=== PATIENT | male | born 1965 | race Caucasian/White ===

== ENCOUNTER 2020-12-26 05:59 | Outpatient (REF) | payer OTHER, SELFPAY ==
--- NOTE | ~2020-12-26 | XR_ITS ---
EXAMINATION: XR FOOT, RIGHT CLINICAL INFORMATION: Right great toe pain. COMPARISON: None TECHNIQUE: AP, lateral, and oblique views of the right foot. FINDINGS: The 1st interphalangeal joint is held in flexion limiting evaluation. No acute fracture or dislocation of the right foot. No radiopaque foreign body. No destructive bony lesion is seen. There appears to be some irregularity of the base of 1st distal phalanx articular surface where there is a concave appearance but without definite loss of joint space. There appears to be subchondral cyst formation about the distal aspect of the 1st proximal phalanx with question of some deformity of the 1st middle phalanx head. XR/XR foot RT min 3V IMPRESSION: 1. Abnormality of the right 1st interphalangeal joint as described. 2. No acute fracture or dislocation evident.
[2020-12-26 07:05] LABS: MANUAL DIFF FLAG NO
[2020-12-26 07:15] LABS: Basophils Absolute Auto 0.1 X10*3/uL (0.0-0.2); Basophils Percent Auto 1.3 % (0-2); Eosinophils Absolute Auto 0.2 X10*3/uL (0.0-0.4); Eosinophils Percent Auto 4.3 % (0-4); Hematocrit 46.4 % (42-52); Imm Gran Abs Auto 0.02 X10*3/uL (0.00-0.03); Imm Gran Pct Auto 0.4 % (0.0-0.4); Lymphocytes Absolute Auto 1.9 X10*3/uL (1.2-4.9); Lymphocytes Percent Auto 35.5 % (20-40); Mean Corpuscular HGB Conc 34.5 g/dl (31.0-36.0); Mean Corpuscular Hemoglobin 31.7 pg (27.0-33.0); Mean Corpuscular Volume 91.9 fL (80-98); Mean Platelet Volume 10.5 fL (9.4-12.4); Monocytes Absolute Auto 0.7 X10*3/uL (0.1-1.2); Monocytes Percent Auto 12.5 % (2-11); Neutrophils Absolute Auto 2.4 X10*3/uL (2.0-8.3); Platelet Count 206 X10*3/uL (160-400); Red Blood Count 5.05 X10*6/uL (4.60-5.80); Red Cell Distribution Width 11.9 % (11.0-16.0); White Blood Count 5.3 X10*3/uL (4.8-10.8)
[2020-12-26 07:49] LABS: Alanine Aminotransferase 16 U/L (0-40); Alkaline Phosphatase 55 U/L (39-117); Anion Gap 9 (12-20); Aspartate Amino Transferase 17 U/L (5-37); Bilirubin Total 0.7 mg/dL (0.0-1.0); Blood Urea Nitrogen 10 mg/dL (9-16); Calcium 9.3 mg/dL (8.4-10.2); Carbon Dioxide 28 mmol/L (22-29); Chloride 107 mmol/L (96-108); Cholesterol 201 mg/dL; Estimated Glomerular Filt Rate > 60; Glucose Fasting 92 mg/dL (60-99); HDL Cholesterol 59 mg/dL; LDL Cholesterol Calculated 125 mg/dl; Potassium 4.3 mmol/L (3.3-5.1); Sodium 140 mmol/L (135-145); Total Protein 6.7 g/dL (6.5-8.0); Triglycerides 89 mg/dL
[2020-12-26 08:30] LABS: Prostate Specific Antigen 0.92 ng/mL (<0.05-4.0)
== END 2020-12-26 06:00 | disposition home or self-care (01) ==
LOC: HO.LAB 05:59
PROVIDERS: PCP Internal Medicine; Visit Provider Internal Medicine
DX: N40.0 Benign prostatic hyperplasia without lower urinary tract symptoms (principal); E78.00 Pure hypercholesterolemia, unspecified; R10.30 Lower abdominal pain, unspecified; Z86.010 Personal history of colon polyps
CPT/HCPCS: 36415; 73630; 80053; 80061; 84153; 85025

== ENCOUNTER 2021-05-30 11:21 | Outpatient (REF) | payer OTHER, SELFPAY ==
--- NOTE | ~2021-05-30 | XR_ITS ---
EXAMINATION: XR KNEE, LEFT CLINICAL INFORMATION: Left knee pain COMPARISON: None TECHNIQUE: Four views of the left knee. FINDINGS: Faint chondrocalcinosis. Generalized mild spurring preservation joint spaces. Small nonspecific joint effusion. Within the posterior and lateral aspect of the tibial diametaphysis, there is a broad-based exostosis most consistent with a sessile osteochondroma. Note definitive aggressive features seen on plain radiographs but due to its location, it is seen in a limited fashion. No other focal lesion. No chondroid matrix or soft tissue swelling or mass grossly. XR/XR knee LT 4V IMPRESSION: 1. Nonspecific joint effusion. 2. Broad-based sessile osteochondroma as above emanating from the posterior/lateral tibial metaphysis. Recommend MRI for further assessment. This could cause localized impingement which could be etiology of the patient's symptoms versus any aggressive changes not evident on radiographs.
== END 2021-05-30 11:22 | disposition home or self-care (01) ==
LOC: HO.XRAY 11:21
PROVIDERS: PCP Internal Medicine; Visit Provider Internal Medicine
DX: M25.562 Pain in left knee (principal)
CPT/HCPCS: 73564

== ENCOUNTER 2021-06-05 14:10 | Outpatient (REF) | payer OTHER, SELFPAY ==
[2021-06-05 15:01] LABS: Influenza A PCR NEGATIVE (Negative); Influenza B PCR NEGATIVE (Negative); Resp Syncy Virus RNA Qual PCR NEGATIVE (Negative); SARS COV2 PCR INHOUSE NEGATIVE (Negative)
== END 2021-06-05 14:11 | disposition home or self-care (01) ==
LOC: HO.LNP 14:10
PROVIDERS: Visit Provider Internal Medicine
DX: Z20.822 Contact with and (suspected) exposure to COVID-19 (principal)
CPT/HCPCS: 0241U

== ENCOUNTER 2021-09-03 16:58 | Outpatient (REF) | payer OTHER, SELFPAY ==
[2021-09-03 17:10] LABS: MANUAL DIFF FLAG NO
[2021-09-03 17:50] LABS: Basophils Absolute Auto 0.1 X10*3/uL (0.0-0.2); Basophils Percent Auto 0.9 % (0-2); Eosinophils Absolute Auto 0.1 X10*3/uL (0.0-0.4); Hematocrit 44.6 % (42.0-52.0); Hemoglobin 15.8 g/dl (14.0-18.0); Imm Gran Abs Auto 0.01 X10*3/uL (0.00-0.03); Imm Gran Pct Auto 0.1 % (0.0-0.4); Lymphocytes Absolute Auto 1.8 X10*3/uL (1.2-4.9); Lymphocytes Percent Auto 26.8 % (20-40); Mean Corpuscular HGB Conc 35.4 g/dl (31.0-36.0); Mean Corpuscular Hemoglobin 32.6 pg (27.0-33.0); Mean Platelet Volume 10.2 fL (9.4-12.4); Monocytes Absolute Auto 0.8 X10*3/uL (0.1-1.2); Monocytes Percent Auto 11.5 % (2-11); Neutrophils Percent Auto 58.7 % (45-73); Platelet Count 220 X10*3/uL (160-400); Red Blood Count 4.85 X10*6/uL (4.60-5.80); Red Cell Distribution Width 12.2 % (11.0-16.0); White Blood Count 6.9 X10*3/uL (4.8-10.8)
[2021-09-03 18:19] LABS: Alanine Aminotransferase 36 U/L (0-40); Albumin Level 4.1 g/dL (3.5-5.0); Alkaline Phosphatase 63 U/L (39-117); Anion Gap 9 (12-20); Aspartate Amino Transferase 22 U/L (5-37); Bilirubin Total 0.4 mg/dL (0.0-1.0); Blood Urea Nitrogen 17 mg/dL (9-16); C Reactive Protein 0.11 mg/dL (< or = 0.50); Calcium 9.6 mg/dL (8.4-10.2); Carbon Dioxide 29 mmol/L (22-29); Chloride 108 mmol/L (96-108); Estimated Glomerular Filt Rate > 60; Glucose Random 100 mg/dL (60-115); Potassium 4.7 mmol/L (3.3-5.1); Sodium 141 mmol/L (135-145); Total Protein 6.9 g/dL (6.5-8.0)
[2021-09-03 18:27] LABS: Erythrocyte Sedimentation Rate 4 MM/HR (0-15)
[2021-09-03 18:40] LABS: Thyroid Stimulating Hormone 0.94 uIU/mL (0.32-4.0)
== END 2021-09-03 16:59 | disposition home or self-care (01) ==
LOC: HO.LAB 16:58
PROVIDERS: PCP Internal Medicine; Visit Provider Internal Medicine
DX: R55 Syncope and collapse (principal)
CPT/HCPCS: 36415; 80053; 82550; 84443; 85025; 85652; 86140

== ENCOUNTER 2021-09-10 07:37 | Outpatient (REF) | payer OTHER, SELFPAY ==
--- NOTE | 2021-09-10 07:43 | EEG_ITS ---
This is a 16-channel EEG with an EKG lead. The patient is reported awake during the tracing. Background EEG rhythm is low amplitude fast with no obvious asymmetry or paroxysmal tendency. Photic stimulation does not produce any significant abnormality. Hyperventilation is not performed. Cardiac lead does not reveal any significant abnormality. IMPRESSION: Unremarkable EEG. MD SALVADOR Bolaños/CAYDEN / [id number]
== END 2021-09-10 07:38 | disposition home or self-care (01) ==
LOC: HO.NEURO 07:37
PROVIDERS: PCP Internal Medicine; Visit Provider Internal Medicine
DX: R55 Syncope and collapse (principal)
CPT/HCPCS: 95816

== ENCOUNTER 2022-07-06 07:07 | Outpatient (REF) | payer OTHER, SELFPAY ==
[2022-07-06 07:24] LABS: MANUAL DIFF FLAG NO
[2022-07-06 08:05] LABS: Basophils Absolute Auto 0.1 X10*3/uL (0.0-0.2); Basophils Percent Auto 1.3 % (0-2); Eosinophils Absolute Auto 0.2 X10*3/uL (0.0-0.4); Eosinophils Percent Auto 3.9 % (0-4); Hematocrit 43.9 % (42.0-52.0); Hemoglobin 15.6 g/dl (14.0-18.0); Imm Gran Abs Auto 0.02 X10*3/uL (0.00-0.03); Imm Gran Pct Auto 0.4 % (0.0-0.4); Lymphocytes Absolute Auto 1.7 X10*3/uL (1.2-4.9); Mean Corpuscular HGB Conc 35.5 g/dl (31.0-36.0); Mean Corpuscular Hemoglobin 31.6 pg (27.0-33.0); Monocytes Absolute Auto 0.8 X10*3/uL (0.1-1.2); Monocytes Percent Auto 14.4 % (2-11); Neutrophils Absolute Auto 2.6 x10*3/uL (2.0-8.3); Platelet Count 209 X10*3/uL (160-400); Red Blood Count 4.93 X10*6/uL (4.60-5.80); Red Cell Distribution Width 12.3 % (11.0-16.0); White Blood Count 5.4 X10*3/uL (4.8-10.8)
[2022-07-06 09:03] LABS: Alanine Aminotransferase 28 U/L (0-40); Albumin Level 3.8 g/dL (3.5-5.0); Alkaline Phosphatase 63 U/L (39-117); Anion Gap 11 (12-20); Aspartate Amino Transferase 21 U/L (5-37); Bilirubin Total 0.7 mg/dL (0.0-1.0); Blood Urea Nitrogen 11 mg/dL (9-16); Calcium 8.8 mg/dL (8.4-10.2); Carbon Dioxide 24 mmol/L (22-29); Chloride 108 mmol/L (96-108); Estimated Glomerular Filt Rate > 60; Glucose Random 93 mg/dL (60-115); Magnesium 1.9 mg/dL (1.6-2.6); Potassium 3.9 mmol/L (3.3-5.1); Sodium 139 mmol/L (135-145); Total Protein 6.4 g/dL (6.5-8.0)
[2022-07-06 09:20] LABS: Prostate Specific Antigen 0.79 ng/mL (<0.05-4.0)
== END 2022-07-06 07:08 | disposition home or self-care (01) ==
LOC: HO.LAB 07:07
PROVIDERS: PCP Internal Medicine; Visit Provider Internal Medicine
DX: Z00.00 Encounter for general adult medical examination without abnormal findings (principal); Z12.5 Encounter for screening for malignant neoplasm of prostate
CPT/HCPCS: 36415; 80053; 83735; 84153; 85025

== ENCOUNTER 2022-10-28 09:32 | Outpatient (REF) | payer OTHER, SELFPAY | END 2022-10-28 09:33 | disposition home or self-care (01) | LOC: HO.10HDLNP 09:32 | PROVIDERS: Visit Provider Internal Medicine | DX: Z20.818 Contact with and (suspected) exposure to other bacterial communicable diseases (principal) | CPT/HCPCS: 87070; 87205 ==

== ENCOUNTER 2023-08-06 06:48 | Outpatient (REF) | payer OTHER, SELFPAY ==
[2023-08-06 07:02] LABS: MANUAL DIFF FLAG NO
[2023-08-06 07:41] LABS: Basophils Absolute Auto 0.1 X10*3/uL (0.0-0.2); Basophils Percent Auto 1.2 % (0-2); Eosinophils Absolute Auto 0.2 X10*3/uL (0.0-0.4); Eosinophils Percent Auto 4.7 % (0-4); Hematocrit 44.1 % (42.0-52.0); Hemoglobin 15.4 g/dl (14.0-18.0); Imm Gran Abs Auto 0.02 X10*3/uL (0.00-0.03); Imm Gran Pct Auto 0.4 % (0.0-0.4); Lymphocytes Absolute Auto 1.8 X10*3/uL (1.2-4.9); Lymphocytes Percent Auto 35.8 % (20-40); Mean Corpuscular HGB Conc 34.9 g/dl (31.0-36.0); Mean Corpuscular Hemoglobin 31.4 pg (27.0-33.0); Mean Platelet Volume 9.7 fL (9.4-12.4); Monocytes Absolute Auto 0.6 X10*3/uL (0.1-1.2); Monocytes Percent Auto 12.6 % (2-11); Neutrophils Absolute Auto 2.3 x10*3/uL (2.0-8.3); Neutrophils Percent Auto 45.3 % (45-73); Platelet Count 222 X10*3/uL (160-400); Red Cell Distribution Width 12.4 % (11.0-16.0); White Blood Count 5.1 X10*3/uL (4.8-10.8)
[2023-08-06 07:59] LABS: Alanine Aminotransferase 31 U/L (0-40); Albumin Level 3.8 g/dL (3.5-5.0); Alkaline Phosphatase 63 U/L (39-117); Anion Gap 11 (12-20); Aspartate Amino Transferase 28 U/L (5-37); Bilirubin Total 0.5 mg/dL (0.0-1.0); Blood Urea Nitrogen 9 mg/dL (9-16); Calcium 9.1 mg/dL (8.4-10.2); Carbon Dioxide 25 mmol/L (22-29); Chloride 108 mmol/L (96-108); Cholesterol 224 mg/dL (<200); Estimated Glomerular Filt Rate > 60; Glucose Fasting 98 mg/dL (60-99); HDL Cholesterol 56 mg/dL (>40); LDL Cholesterol Calculated 149 mg/dL (<100); Sodium 140 mmol/L (135-145); Total Protein 6.8 g/dL (6.5-8.0); Triglycerides 96 mg/dL (<150)
[2023-08-06 08:47] LABS: Prostate Specific Antigen Scr 0.89 ng/mL (<0.05-4.0)
== END 2023-08-06 06:49 | disposition home or self-care (01) ==
LOC: HO.LAB 06:48
PROVIDERS: PCP Internal Medicine; Visit Provider Internal Medicine
DX: Z12.5 Encounter for screening for malignant neoplasm of prostate (principal); R35.1 Nocturia; M54.50 Low back pain, unspecified
CPT/HCPCS: 36415; 80053; 80061; 84153; 85025

== ENCOUNTER 2023-09-12 08:11 | Outpatient (REF) | payer OTHER, SELFPAY | END 2023-09-12 08:12 | disposition home or self-care (01) | LOC: HO.SH 08:11 | PROVIDERS: PCP Internal Medicine; Visit Provider Internal Medicine | DX: Z01.118 Encounter for examination of ears and hearing with other abnormal findings (principal); H90.3 Sensorineural hearing loss, bilateral | CPT/HCPCS: 92557; 92567 ==

== ENCOUNTER 2024-02-13 15:49 | Outpatient (REF) | payer OTHER, SELFPAY ==
--- NOTE | ~2024-02-13 | XR_ITS ---
EXAMINATION: XR FOOT, RIGHT CLINICAL INFORMATION: Right foot pain COMPARISON: X-rays of right foot December 2020 TECHNIQUE: AP, lateral, and oblique views of the right foot. FINDINGS: No fracture. 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 Electronically signed by: Volodymyr Guerrero MD 02/20/2024 07:14 AM EDT
== END 2024-02-13 15:50 | disposition home or self-care (01) ==
LOC: HO.XRAY 15:49
PROVIDERS: PCP Internal Medicine; Visit Provider Internal Medicine
DX: S99.921D Unspecified injury of right foot, subsequent encounter (principal)
CPT/HCPCS: 73630

== ENCOUNTER 2024-03-09 15:24 | Outpatient (REF) | payer OTHER, SELFPAY ==
[2024-03-09 15:45] LABS: MANUAL DIFF FLAG NO
[2024-03-09 15:51] LABS: Basophils Absolute Auto 0.1 X10*3/uL (0.0-0.2); Basophils Percent Auto 1.2 % (0-2); Eosinophils Absolute Auto 0.2 X10*3/uL (0.0-0.4); Eosinophils Percent Auto 3.7 % (0-4); Hematocrit 44.5 % (42.0-52.0); Hemoglobin 15.7 g/dl (14.0-18.0); Imm Gran Abs Auto 0.02 X10*3/uL (0.00-0.03); Imm Gran Pct Auto 0.4 % (0.0-0.4); Lymphocytes Absolute Auto 1.5 X10*3/uL (1.2-4.9); Lymphocytes Percent Auto 26.6 % (20-40); Mean Corpuscular HGB Conc 35.3 g/dl (31.0-36.0); Mean Corpuscular Hemoglobin 32.2 pg (27.0-33.0); Mean Corpuscular Volume 91.2 fL (80.0-98.0); Mean Platelet Volume 9.7 fL (9.4-12.4); Monocytes Absolute Auto 0.6 X10*3/uL (0.1-1.2); Neutrophils Absolute Auto 3.2 x10*3/uL (2.0-8.3); Neutrophils Percent Auto 57.1 % (45-73); Platelet Count 214 X10*3/uL (160-400); Red Blood Count 4.88 X10*6/uL (4.60-5.80); Red Cell Distribution Width 11.9 % (11.0-16.0); White Blood Count 5.6 X10*3/uL (4.8-10.8)
[2024-03-09 16:20] LABS: Alanine Aminotransferase 16 U/L (0-40); Albumin Level 4.1 g/dL (3.5-5.0); Alkaline Phosphatase 67 U/L (39-117); Anion Gap 11 (12-20); Aspartate Amino Transferase 17 U/L (5-37); Bilirubin Total 0.5 mg/dL (0.0-1.0); Blood Urea Nitrogen 12 mg/dL (9-16); C Reactive Protein 0.11 mg/dL (< or = 0.50); Calcium 9.3 mg/dL (8.4-10.2); Carbon Dioxide 28 mmol/L (22-29); Chloride 108 mmol/L (96-108); Estimated Glomerular Filt Rate > 60; Glucose Random 91 mg/dL (60-115); Potassium 4.6 mmol/L (3.3-5.1); Sodium 142 mmol/L (135-145); Total Protein 7.1 g/dL (6.5-8.0)
[2024-03-10 17:38] LABS: Lyme Abs Screen <0.90 index
[2024-03-12 17:43] LABS: West Nile Virus IgM Antibody <0.90 index (<0.90); West Nile Virus, IgG <1.30 index (<1.30)
== END 2024-03-09 15:25 | disposition home or self-care (01) ==
LOC: HO.LAB 15:24
PROVIDERS: PCP Internal Medicine; Visit Provider Internal Medicine
DX: R53.83 Other fatigue (principal); R21 Rash and other nonspecific skin eruption
CPT/HCPCS: 36415; 80053; 82550; 85025; 86140; 86617; 86618; 86788; 86789

== ENCOUNTER 2024-09-22 12:43 | Outpatient (REF) | payer OTHER, SELFPAY ==
--- NOTE | ~2024-09-22 | XR_ITS ---
EXAMINATION: XR KNEE 4 OR MORE VIEWS RIGHT HISTORY: R knee pain x 1 day, no injury COMPARISON: There are no prior studies available for comparison. FINDINGS: Five views of the right knee are submitted. Osseous mineralization is normal. There is no fracture or dislocation. The joint spaces are preserved. The soft tissues are unremarkable. There is no joint effusion. XR/XR knee RT 4V IMPRESSION: Unremarkable examination of the right knee. Electronically signed by: Richard Levy MD 09/22/2024 01:34 PM EDT
--- OUTSIDE RECORDS SUMMARY | 2024-09-22 15:04 | XMS_ITS | Encounter Summary ---
Author Organization [employer] Address [address] [facility] [address] [place] [address] Care Team Providers Care Yarn Mercerizer Operator Name Role Phone Stephanie Aguilar DO Primary Care Provider [phone] Encounter Details Date Type Department Care Team (Latest Contact Info) Description 09/22/2024 Travel Social History Tobacco Use Types Packs/Day Years Used Date Smoking Tobacco: Former Cigarettes Comments:Pt's history states 1/2 ppd [id number] Alcohol Use Standard Drinks/Week Comments Yes 2 (1 standard drink = 0.6 oz pur e alcohol) Sex and Gender Information Value Date Recorded Sex Assigned at Male 04/30/2024 1:08 PM EST Legal Sex Male 1:07 PM EST Gender Identity Male 04/30/2024 1:08 PM EST Sexual Orientation Straight 04/30/2024 1: 08 PM EST documented as of this encounter Plan of Treatment Not on file documented as of this encounter Visit Diagnoses Not on filedocumented in this encounter Care Teams Yarn Mercerizer Operator Relationship Specialty Start Date End Date Stephanie Aguilar DO [address] [place] [address] PCP - General Family Medicine 08/26/24 documented as of this encounter
--- OUTSIDE RECORDS SUMMARY | 2024-09-22 15:04 | XMS_ITS | Data Portability ---
Author Organization [place] [facility] Address [address] [place] [address] Care Team Providers Care Electrician Apprentice Powerhouse Name Role Phone FILIPE SNOW Primary Care Provider Assessment No assessment recorded. Plan of Treatment Reminders Order Date Submit Date Provider Last Modified By Organization Details Last Modified Time Details Appointments None recorded . Lab None recorded . Referral vestibul ar therapy referral - Appt 04/26 @ 1:15pm 2023 024 [facility], [address] [place] [address], 1[address] Floor, [place], [address], 14:00:14 Procedures None recorded . Surgeries None recorded . Imaging None recorded . Medication Orders None recorded . Patient TargetsNo targets recorded. Patient InstructionsNo instructions recorded. Reason for Referral Vestibular Therapy Referral for Benign paroxysmal positional vertigo nystagmus Appt 04/26 @ 1:15pm Referring Physician: Jim Duke, Otolaryngology, Encounter Date: 04/01/2024 Results Created Date Observation Date Name Description Value Unit Range Abnormal Flag Note LastModifiedBy Organization Detail LastModifiedTime 04/01/2009/12/2023 audio gram No observ ation record ed. [email or web address] Not Available 03/10 12:40:04 04/02/20 audio gram No observ ation record ed. BARCODE Not Available 2023 09:48:56 04/02/2004/01/2024 audio gram No observ ation record ed. [email or web address] Not Available 03/10 09:49:46 Result Notes None recorded. Problems Name Problem SNOMED Code Status Onset Date Resolution Date Notes Provider Name and Address Organization Details Recorded Time Dizziness and giddiness 403904883 Active 2023 JIM Miner MD [address] [place] [address], [place], [address], [facility] 11:54:12 Benign paroxysmal positional vertigo nystagmus 291091860 Active 2023 JIM Miner MD [address] [place] [address], [place], [address], [facility] 12:00:47 Sensorineural hearing loss of bilateral ears 500510035 Active 2023 JIM Miner MD [address] [place] [address], [place], [address], [facility] 12:01:08 Problem Notes None recorded. Procedures Surgical History None recorded. Imaging Results Imaging Date Name Status LastModified by Organiz ation Details LastModified Time 09/12/2023 audiogram completed [email or web address] Information n ot available 04/01/2024 12:40:04 04/02/2024 audiogram completed BARCODE Information no t available 04/02/2024 09:48:56 04/01/2024 audiogram completed [email or web address] Information n ot available 04/02/2024 09:49:46 Procedure Notes None recorded. Medical Equipment None Reported. Medications Name Sig Start Date Stop Date Status Note LastModified by Organization Details LastModified Time cyclobenzapr ine 10 mg tablet TAKE 1 TABLET(S) BY MOUTH TWICE A DAY NEEDED-MAY CAUSE DROWSINESS active Not Available Not Available N ot Available acyclovir 400 mg tablet TAKE 1 TABLET BY MOUTH TWICE A DAY active Not Available Not Available No t Available hydroxyzine HCl 25 mg tablet TAKE 1 TABLET BY MOUTH EVERY 6 HOURS active Not Available Not Available No t Available Vitals Date Recorded Body height Body mass index (BMI) Body weight Provider Name and Address Organization Details Last Updated DateTime 04/01/2024 177.8 cm 25.8 kg/m2 33125.63 g Mark Vance [facility] 04/01/2024 11:35:49 Social History None recorded. Functional Status None recorded. Mental Status None recorded. Family History Nothing Reported. Medical History No medical history recorded. Past Encounters Encounter ID Performer Location Encounter Start Date Encounter Closed Date Diagnosis/Indication Diagnosis SNOMED-CT Code Diagnosis ICD10 Code Diagnosis Note [id number] JIM DUKE MD [facility] [address] [address] 04/01/2024 10:48:17 04/01/2024 12:37:43 Benign paroxysmal positional vertigo nystagmus 691465780 H81.13 He has bilateral BPPV. I did a right Eldon. I will refer to vestibular therapy. Sensorineu ral hearing loss of bilateral ears 034269780 H90.3 I repeated his audio which showed symmetric hearing loss. I gave reassuranc e there is not significan t asymmetry. Health Concerns Section Related Observation LastModified by Organization Detai ls LastModified Time None Recorded Concern Status LastModified by Organization Details LastModified Time None Recorded Advance Directives Directive None Recorded Payers Encounter Date Sequence Insurance Name Policy Number Policy Calero Covered Member ID Calero Member ID Guarantor Name 04/01/2024 1 [facility] [employer] - DIRECT CONNECTORCARE TYPE I (HMO) [id number] Bob Tellez [id number] 1 Bob Tellez Notes Date Note Type Note Provider Name and Address Organization Details Recorded Time 04/01/2024 text/html He was referred due to asymmetric hearing loss. Had an audio in September which showed SnHL worse AD. Has daily positional vertigo. No constant tinnitus. Takes simon which he says helps somewhat with his dizziness. JIM DUKE MD [address] [place] [address], [place], [address], [facility] - [facility] 04/01/2024 12:59:26
--- OUTSIDE RECORDS SUMMARY | 2024-09-22 15:04 | XMS_ITS | Clinical Summary ---
Author Organization [employer] Address [address] [facility] [address] [place] [address] Care Team Providers Care Income Tax Preparer Name Role Phone RaissaStephanie jaeger Primary Care Provider [phone] Allergies No known active allergies Medications acyclovir (Zovirax) 400 MG tablet Take 1 tablet (400 mg) by mouth 2 times daily. 60 tablet 11 5 Active fexofenadine (Tamie) 180 MG tablet Take 1 tablet (180 mg) by mouth Once per day. 30 tablet 11 5 026 Active cyclobenzaprin e (Flexeril) 10 MG tablet Take 10 mg by mouth. 4 Active hydrOXYzine HCl (Atarax) 25 MG tablet Take 1 tablet by mouth every 6 (six) hours. Active ibuprofen 800 MG tabletIndicati ons:Acute pain of right knee Take 1 tablet (800 mg) by mouth 3 times daily. 90 tablet 5 025 Active acyclovir (Zovirax) 400 MG tablet Take 400 mg by mouth 2 times daily. 025 Discontinued(Re order (will not trigger notification to Pharmacy)) Active Problems Problem Noted Date Diagnosed Date Genital HSV 08/26/2024 History of basal cell carcinoma 08/26/2024 Chronic allergic rhinitis 08/26/2024 Benign paroxysmal positional vertigo 04/01/2024 Sensorineural hearing loss (SNHL) of both ears 1 Benign paroxysmal vertigo, bilateral 04/01/2024 Resolved Problems Problem Noted Date Diagnosed Date Resolved Date H/O medial meniscus repair of left knee 08/26/2024 08/26/2024 Herpes 08/26/2024 08/26/2024 Dizziness and giddiness 04/01/2024 03/ Basal cell carcinoma of skin of other parts of face 08/27/2023 08/26/2024 Soft tissue mass 08/27/2023 08/26/2024 Encounters Date Type Department Care Team Description 09/22/2024 11:00 AM EDT Office Visit [facility] [address] [place] [address] Chelsi Dodge CNP Acute pain of right knee (Primary Dx) 09/22/2024 Travel 08/26/2024 9:40 AM EDT Office Visit [facility] [address] [place] [address] Stephanie Aguilar DO Genital herpes simplex, unspecified site (Primary Dx); History of basal cell carcinoma; Chronic allergic rhinitis; Healthcare maintenance 07/13/2024 Telephone [facility] [address] [place] [address] David Pedraza MD Appointment Request from Last 3 Months Immunizations Name Administration Dates Next Due Influenza Injectable Quadriv alant Preservative Free IIV4 MDCK 02/22/2023,03/22/2022 Influenza, seasonal, injectable, preservative fr ee 05/10/2024 Pfizer Covid-19 Vaccine 12+ 04/30/2024 Social History Tobacco Use Types Packs/Day Years Used Date Smoking Tobacco: Former Cigarettes Tobacco Cessation:Counseling Given: Not Answered Comments:Pt's history states 1/2 ppd 1338-2735 Alcohol Use Standard Drinks/Week Comments Yes 2 (1 standard drink = 0.6 oz pur e alcohol) Sex and Gender Information Value Date Recorded Sex Assigned at Male 04/30/2024 1:08 PM EST Legal Sex Male 1:07 PM EST Gender Identity Male 04/30/2024 1:08 PM EST Sexual Orientation Straight 04/30/2024 1: 08 PM EST Last Filed Vital Signs Vital Sign Reading Time Taken Comments Blood Pressure 121/83 09/22/2024 10:50 AM EDT Pulse 73 09/22/2024 10:50 AM EDT Temperature 37.1 ??C (98.7 ??F) 09/22/2024 10:50 AM E DT Respiratory Rate 20 09/22/2024 10:50 AM EDT Oxygen Saturation 97% 09/22/2024 10:50 AM EDT Inhaled Oxygen Concentration - - Weight 84.4 kg (186 lb) 09/22/2024 10:50 AM EDT Height - - Body Mass Index - - Plan of Treatment Health Maintenance Due Date Last Done Comments CT Colonography 1966 Colonoscopy 1966 Colorectal Cancer Screening 1966 Depression Screening 1966 FIT DNA/Cologuard 1966 FIT 1966 FOBT 1966 HIV Screening 1966 Lipid Panel 1966 SDOH Screening 1966 Sigmoidoscopy 1966 Alcohol/Substance Use Screening 1978 Hepatitis C Screening 1984 DTaP/Tdap/Td Vaccines (1 - Tdap) 1985 Hepatitis B Vaccines (1 of 3 - 19+ 3-dose series) 1985 Pneumococcal Vaccine: 50+ Years (1 of 1 - PCV) 2016 Zoster Vaccines (1 of 2) 2016 Tobacco Screening 08/26/2025 08/26/2024 RSV Patients and Patients Aged 60 years or older (1 - 1-dose 75+ series) 2041 COVID-19 Vaccine Completed 04/30/2024, , 06/11/2022, Additional history exists Influenza Vaccine Completed 05/10/2024, , 03/22/2022 HIB Vaccines Aged Out No longer eligi ble based on patient's age to complete this topic HPV Vaccines Aged Out No longer eligi ble based on patient's age to complete this topic Hepatitis A Vaccines Aged Out No long er eligible based on patient's age to complete this topic IPV Vaccines Aged Out No longer eligi ble based on patient's age to complete this topic Meningococcal Vaccine Aged Out No joe jazlyn eligible based on patient's age to complete this topic RSV under 20 months Aged Out No longe r eligible based on patient's age to complete this topic Rotavirus Vaccines Aged Out No longer eligible based on patient's age to complete this topic Procedures Procedure Name Priority Date/Time Associated Diagnosis Comments XR KNEE 4+ VIEWS RIGHT Routine 09/22/2024 12:44 PM EDT Acute pain of right knee from Last 3 Months Results * XR Knee 4+ Views Right (09/22/2024 12:44 PM EDT) Anatomical Region Laterality Modality Lower Extremities, Knee Right Radiogra phic Imaging 09/22/2024 12:4 4 PM EDT Narrative 09/22/2024 1:37 PM EDT ?[facility] ?[address] ?[place] [address] ?XRay Report ? Signed ? Patient: Bob Tellez ?MR#: [id number] ?? 38 ? : 1965 ?Acct:[id number] ? Age/Sex: 59 / M ?ADM Date: 09/22/24 ? Loc: HO.HHCX ? Attending Dr: Chelsi Dodge SMALL PARTS SHAPER OPERATOR ? Ordering Physician: Chelsi Dodge ?? Date of Service: 09/22/24 ?? Procedure(s): XR knee RT 4V ?? Accession Number(s): [id number] ? cc: Chelsi Dodge ? EXAMINATION: ??XR KNEE 4 OR MORE VIEWS RIGHT ? HISTORY: R knee pain x 1 day, no injury ? COMPARISON: There are no prior studies available for comparison. ? FINDINGS: ? Five views of the right knee are submitted. ??Osseous mineralization is ?? normal. ??There is no fracture or dislocation. ??The joint spaces are ?? preserved. ??The soft tissues are unremarkable. There is no joint ?? effusion. ? XR/XR knee RT 4V ?? IMPRESSION: ? Unremarkable examination of the right knee. ? Electronically signed by: ??Richard Levy MD ??09/22/2024 01:34 PM EDT ?? RP ? Dictated By: ?Richard Levy MD ? Signed By: ?<Electronically signed by Richard Levy MD in OV> ?09/22/24 1334 ? DD/DT: 09/22/ 1244 ? TD/TT: 09/22/24 1300 ? Battery Test Engineer: ? Procedure Note Asya Image - 09/22/2024 [facility] [address] [place] [address] XRay Report Signed Patient: Bob Tellez TMR#: [id number] 38 : 1965Acct:[id number] Age/Sex: 59 / MADM Date: 09/22/24 Loc: HO.HHCX Attending Dr: Chelsi Dodge SMALL PARTS SHAPER OPERATOR Ordering Physician: Chelsi Dodge Date of Service: 09/22/24 Procedure(s): XR knee RT 4V Accession Number(s): [id number] cc: Chelsi Dodge EXAMINATION: XR KNEE 4 OR MORE VIEWS RIGHT HISTORY: R knee pain x 1 day, no injury COMPARISON: There are no prior studies available for comparison. FINDINGS: Five views of the right knee are submitted. Osseous mineralization is normal. There is no fracture or dislocation. The joint spaces are preserved. The soft tissues are unremarkable. There is no joint effusion. XR/XR knee RT 4V IMPRESSION: Unremarkable examination of the right knee. Electronically signed by: Richard Levy MD 09/22/2024 01:34 PM EDT Dictated By: Richard Levy MD Signed By: <Electronically signed by Richard Levy MD in OV> 09/22/24 1334 DD/ 1244 TD/TT: 09/22/24 1300 Battery Test Engineer: Chelsi Dodge GLASS SELECTOR IMG XR PROCEDURES Final R esult from Last 3 Months Insurance [facility] Care Teams Income Tax Preparer Relationship Specialty Start Date End Date Stephanie Aguilar DO [address] [facility] [place] [address] PCP - General Family Medicine 08/26/24
--- OUTSIDE RECORDS SUMMARY | 2024-09-22 15:04 | XMS_ITS | Encounter Summary ---
Author Organization [employer] Address [address] [place] [address] [address] [place] [address] Care Team Providers Care Tire Wrapper Name Role Phone Stephanie Aguilar Primary Care Provider [phone] Reason for Visit * Reason Comments Knee Pain Encounter Details Date Type Department Care Team (Late st Contact Info) Description 09/22/2024 11:00 AM EDT Office Visit [facility] [address] [place] [address] Chelsi Dodge CNP [address] [place] [address] Acute pain of right knee (Primary Dx) Social History Tobacco Use Types Packs/Day Years Used Date Smoking Tobacco: Former Cigarettes Comments:Pt's history states 1/2 ppd 7765-7451 Alcohol Use Standard Drinks/Week Comments Yes 2 (1 standard drink = 0.6 oz pur e alcohol) Sex and Gender Information Value Date Recorded Sex Assigned at Male 04/30/2024 1:08 PM EST Legal Sex Male 1:07 PM EST Gender Identity Male 04/30/2024 1:08 PM EST Sexual Orientation Straight 04/30/2024 1: 08 PM EST documented as of this encounter Last Filed Vital Signs Vital Sign Reading [...] - - Body Mass Index - - documented in this encounter Progress Notes * Chelsi Dodge, SURENDRA - 09/22/2024 11:00 AM EDT Subjective Patient ID: Bob Tellez is a 59 y.o. male who presents for r knee pain x 1 day without injury, he said that it started yesterday when he was going down the stars. Reports that he had a stinging pain when he bends the knee. Reports pain was so bad that he almost collapsed and cried. He reports that going down stairs provokes the pain. Reports that alternating heat and ice and taking OTC tylenol somewhat helps pain. He denies swelling, redness, fever, chills. Denies any other joint pains throughout the body..Reports a couple years ago had a torn meniscus in left knee and it feels similar. 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 Review of Systems Constitutional: Negative for chills, fatigue and fever. Respiratory: Negative. Cardiovascular: Negative. Musculoskeletal: Positive for arthralgias and gait problem. Negative for back pain, joint swelling and myalgias. Skin: Negative for color change and rash. Psychiatric/Behavioral: Negative. Objective Vitals: 09/22/24 1050 BP: 121/83 Pulse: 73 Resp: 20 Temp: 98.7 ??F (37.1 ??C) SpO2: 97% Physical Exam Constitutional: General: He is not in acute distress. Appearance: Normal appearance. He is not ill-appearing or toxic-appearing. HENT: Head: Normocephalic and atraumatic. Cardiovascular: Rate and Rhythm: Normal rate and regular rhythm. Pulses: Normal pulses. Heart sounds: Normal heart sounds. No murmur heard. No friction rub. No gallop. Pulmonary: Effort: Pulmonary effort is normal. No respiratory distress. Breath sounds: Normal breath sounds. No stridor. No wheezing or rales. Musculoskeletal: General: No swelling, tenderness, deformity or signs of injury. Normal range of motion. Right knee: No swelling, deformity, effusion, erythema, ecchymosis or lacerations. Normal range of motion. No tenderness. No LCL laxity, MCL laxity, ACL laxity or PCL laxity. Normal alignment, normalmeniscus and normal patellar mobility. Normal pulse. Instability Tests: Anterior drawer test negative. Posterior drawer test negative. Medial Francisco Javier test negative and lateral Francisco Javier test negative. Left knee: Normal. No swelling, deformity, effusion, erythema, ecchymosis or lacerations. Normal range of motion. No tenderness. No LCL laxity, MCL laxity, ACL laxity or PCL laxity.Normal alignment, normal meniscus and normal patellar mobility. Normal pulse. Instability Tests: Anterior drawer test negative. Posterior drawer test negative. Medial Francisco Javier test negative and lateral Francisco Javier test negative. Right lower leg: No edema. Left lower leg: No edema. Comments: R knee is nontender to palpation +tenderness when knee is in flexion, non tender in extension, nontender in external and internal rotation Skin: General: Skin is warm and dry. Findings: No bruising, erythema, lesion or rash. Neurological: General: No focal deficit present. Mental Status: He is alert and oriented to person, place, and time. Psychiatric: Mood and Affect: Mood normal. Behavior: Behavior normal. Thought Content: Thought content normal. Judgment: Judgment normal. Assessment/Plan Problem List Items Addressed This Visit None Visit Diagnoses Acute pain of right knee - Primary Relevant Medications ibuprofen 800 MG tablet Other Relevant Orders XR Knee 4+ Views Right Physical exam negative for infectious etiology, negative for soft tissue (ligamental or tendon) etiology, joint is stable, nontender to palpation, no erythema or excessive heat. Knee pain likely related to DJD versus patellar or quadriceps tendinopathy Recommended conservative tx with NSAIDS (pt denies kidney disease, liver disease, CV, or bleeding disorders), rest, ice, heat, compression and physical therapy. Will obtain X ray today d/t focal pain Advised pt to RTC prn if condition worsens or does not improve with treatment. Pt declines PT at this time would like to just monitor pain on his own first and later consider PT. [facility] HAND PATCHER Attestation HAND PATCHER Resident Attestation: Patient was seen and evaluated by Chelsi Dodge CNP, in collaboration with JAMES Sinha who has reviewed my assessment and plan. I, Angela RAMIREZ, have reviewed the resident's note and agree with the assessment & plan of care as documented above. documented in this encounter Plan of Treatment Not on file documented as of this encounter Procedures Procedure Name Priority Date/Time Associated Diagnosis Comments XR KNEE 4+ VIEWS RIGHT Routine 09/22/2024 12:44 PM EDT Acute pain of right knee documented in this encounter Results * XR Knee 4+ Views Right (09/22/2024 12:44 PM EDT) Anatomical Region Laterality Modality Lower Extremities, Knee Right Radiogra phic Imaging 09/22/2024 12:4 4 PM EDT Narrative 09/22/2024 1:37 PM EDT ?[facility] ?[address] ?[place] [address] ?XRay Report ? Signed ? Patient: Bob Tellez ?MR#: [id number] ?? 38 ? : 1965 ?Acct:[id number] ? Age/Sex: 59 / M ?ADM Date: 09/22/24 ? Loc: [facility] ? Attending Dr: Chelsi Dodge HAND PATCHER ? Ordering Physician: Chelsi Dodge ?? Date of Service: 09/22/24 ?? Procedure(s): XR knee RT 4V ?? Accession Number(s): [id number] ? cc: Chelsi Dodge ? EXAMINATION: ??XR [...] Levy MD in OV> ?09/22/24 1334 ? DD/ 1244 ? TD/TT: 09/22/24 1300 ? Machine Feeder Floorperson: ? Procedure Note Asya, Image - 09/22/2024 [facility] [address] [place] [address] XRay Report Signed Patient: Bob Tellez TMR#: [id number] 37 : 1965Acct:[id number] Age/Sex: 59 / MADM Date: 09/22/24 [facility]: Chelsi Dodge HAND PATCHER Ordering Physician: Chelsi Dodge Date of Service: 09/22/24 Procedure(s): XR knee RT 4V Accession Number(s): [id number] cc: Chelsi Dodge EXAMINATION: XR KNEE 4 [...] 09/22/24 1334 DD/ 1244 TD/TT: 09/22/24 1300 Machine Feeder Floorperson: Chelsi Dodge DANCE COACH IMG XR PROCEDURES Final R esult documented in this encounter Visit Diagnoses Diagnosis Acute pain of right knee- Primary documented in this encounter Care Teams Tire Wrapper Relationship Specialty Start Date End Date Stephanie Aguilar DO [address] [place] [address] PCP - General Family Medicine 08/26/24 documented as of this encounter
== END 2024-09-22 12:44 | disposition home or self-care (01) ==
LOC: HO.HHCX 12:43
DX: M25.561 Pain in right knee (principal)
CPT/HCPCS: 73564

== ENCOUNTER → 2024-09-22 12:44 | Outpatient (BNV) | payer OTHER, SELFPAY | PROVIDERS: Visit Provider Radiology Diagnostic Radiology | DX: M25.561 Pain in right knee (principal) | CPT/HCPCS: 73564 ==

== ENCOUNTER 2025-01-05 08:45 | Outpatient (REF) | payer OTHER, SELFPAY ==
--- OUTSIDE RECORDS SUMMARY | 2025-01-05 09:03 | XMS_ITS | Patient Health Record ---
Author Organization [facility] Address [address] [place] [address] Care Team Providers Care Supervisor Cutting And Boning Name Role Phone Wilmer (RETIRED) Tulio CORREIA Primary Care Provide Dominick Mixon Jr Unavailable [phone] Allergies Allergen (clinical drug ingredient) Drug/Non Drug Allergy documented on EMR Reaction Allergy Type Onset Date Status seasonal (uncoded) Unknown Allergy A ctive Reason For Referral No Information Medications Medication SIG (Take, Route, Frequency, Duration) Notes Start Date End Date Status Colyte with Flavor Packs 240 GM As directed Orally Over the specified time. for 1 day(s) 10/03/2016 Active Problems Problem Type SNOMED Code ICD Code Onset Dates Problem Status W/U Status Risk Notes Problem 224173333 Colon cancer screening (Z12.11) Active confirmed Problem 24943631 Encounter for other preprocedural examination (Z01.818) Active confirmed Plan Of Treatment Future Test Test Name Order Date COLONOSCOPY 10/03/2016 Insurance Providers Payer Name Payer Address Payer Phone Subscriber Number Group Number Insured Name Patient Relationship to Insured Coverage Start Date Coverage End Date [facility] [address] [place] [address] [phone] [id number] YOLIE SANCHEZ Self - patient is the insured Medical (General) History Medical History History ICD Code Denies [place],DM,CVA,Lung disease,renal dise ase Surgical History Surgery Date(Month/Year) ankle surgery [id number] tonsillectomy
--- OUTSIDE RECORDS SUMMARY | 2025-01-05 09:03 | XMS_ITS | Encounter Summary ---
Author Organization [facility] Address [address] [facility] [place] [address] Phone Care Team Providers Care Nursing Education Specialist Name Role Phone Tulio Guillen MD Primary Care Provider Encounter Details Date Type Department Care Team (Late st Contact Info) Description 10/10/2023 Procedure Pass OR Admitting Dept - Virtual Department [address] [place] [id number] Social History Tobacco Use Types Packs/Day Years Used Date Smoking Tobacco: Former Cigarettes - 2014 Smokeless Tobacco: Never Alcohol Use Standard Drinks/Week Comments Yes 0 (1 standard drink = 0.6 oz pur e alcohol) Education Answer Date Recorded Are you interested in more education? Not on griselda e 08/20/2023 Are you concerned about learning? Not on file 08/20/2023 No 08/20/2023 No 08/20/2023 Digital Access Answer Date Recorded No 08/20/2023 No 08/20/2023 Reliable internet access at home? Not on file 08/20/2023 Device with a working camera? Not on file Sex and Gender Information Value Date Recorded Sex Assigned at Not on file Legal Sex Male 9:04 AM EDT Gender Identity Not on file Sexual Orientation Not on file documented as of this encounter Plan of Treatment Not on file documented as of this encounter Visit Diagnoses Not on filedocumented in this encounter Care Teams Nursing Education Specialist Relationship Specialty Start Date End Date Tulio Guillen MD [address] [place] [address] [place] [address] PCP - General Internal Medicine 08/20/23 documented as of this encounter Additional Source Comments The information contained in this document represents components of the legal health record. It is not the complete legal health record.[facility]
[2025-01-05 11:23] LABS: MANUAL DIFF FLAG NO
[2025-01-05 11:39] LABS: Hematocrit 45.7 % (42.0-52.0); Hemoglobin 15.9 g/dl (14.0-18.0); Imm Gran Abs Auto 0.02 X10*3/uL (0.00-0.03); Imm Gran Pct Auto 0.4 % (0.0-0.4); Lymphocytes Absolute Auto 1.8 X10*3/uL (1.2-4.9); Mean Corpuscular HGB Conc 34.8 g/dl (31.0-36.0); Mean Corpuscular Hemoglobin 31.5 pg (27.0-33.0); Mean Corpuscular Volume 90.7 fL (80.0-98.0); NRBC Abs Auto 0.000 X10*3/uL (0.0-0.012); NRBC Pct Auto 0.0 /100WBC (0.0-0.2); Platelet Count 242 X10*3/uL (160-400); Red Blood Count 5.04 X10*6/uL (4.60-5.80); White Blood Count 5.6 X10*3/uL (4.8-10.8)
[2025-01-05 12:23] LABS: Alanine Aminotransferase 35 U/L (0-40); Albumin Level 4.0 g/dL (3.5-5.0); Alkaline Phosphatase 66 U/L (39-117); Anion Gap 10 (12-20); Aspartate Amino Transferase 27 U/L (5-37); Blood Urea Nitrogen 13 mg/dL (9-16); Calcium 8.6 mg/dL (8.4-10.2); Carbon Dioxide 24 mmol/L (22-29); Chloride 109 mmol/L (96-108); Cholesterol 231 mg/dL (<200); Estimated Glomerular Filt Rate > 60; HDL Cholesterol 56 mg/dL (>40); Potassium 3.7 mmol/L (3.3-5.1); Sodium 139 mmol/L (135-145); Total Protein 7.0 g/dL (6.5-8.0); Triglycerides 87 mg/dL (<150)
[2025-01-05 12:27] LABS: Free T4 (Free Thyroxine) 1.01 ng/dL (0.71-1.85); Thyroid Stimulating Hormone 1.47 uIU/mL (0.32-4.0)
[2025-01-05 12:54] LABS: Hemoglobin A1C 125.1731 umol/L; Total Hemoglobin (HGBA1C) 4110.0432 umol/L
[2025-01-05 13:00] LABS: CT PCR Urine NOT DETECTED (Not Detect.); NG PCR Urine NOT DETECTED (Not Detect.)
[2025-01-06 08:23] LABS: HBS Num1 0.22 mIU/mL (0-7.99); HBc Num1 0.13 S/CO (0.00-0.79); HBsAGNum1 0.43 S/CO (0.00-0.99); HIV Num 1 0.05 S/CO (0.00-0.99); Hepatitis B Surface Antigen Negative (Negative); ~HepC Num1 0.29 S/CO (0.00-0.79); ~Hepatitis B Surface Antibody NONREACTIVE (Nonreactive); ~Hepatitis C Antibody Nonreactive (Nonreactive)
[2025-01-07 03:45] LABS: ~Hepatitis A Antibody IgG 1.20 S/CO (0.00-0.99)
== END 2025-01-05 08:46 | disposition home or self-care (01) ==
LOC: HO.HHCL 08:45
PROVIDERS: PCP Family Medicine; Visit Provider Family Medicine
DX: Z11.4 Encounter for screening for human immunodeficiency virus [HIV] (principal); Z11.59 Encounter for screening for other viral diseases; Z00.00 Encounter for general adult medical examination without abnormal findings; A60.00 Herpesviral infection of urogenital system, unspecified; J30.9 Allergic rhinitis, unspecified; Z85.828 Personal history of other malignant neoplasm of skin
CPT/HCPCS: 36415; 80048; 80061; 80076; 82306; 83036; 84439; 84443; 85025; 86592; 86704; 86706; 86708; 86803; 87340; 87389; 87491; 87591

== ENCOUNTER 2025-02-02 11:00 | Outpatient (REF) | payer OTHER, SELFPAY ==
--- OUTSIDE RECORDS SUMMARY | 2009-10-13 06:14 | XMS_ITS | Continuity of Care Document ---
Author Organization [facility] Address [address] [place] [address] Phone Care Team Providers Care Grooving Machine Operator Name Role Phone Tomer Kinsey MD Unavailable Unavailable Allergies, Adverse Reactions, Alerts Substance Reaction Status Criticality No Known allergies Medications Medication Instructions Dosage Effective Dates (start - stop) Status Comments Vicodin 5 mg-500 mg Tab take 1-2 tablet by ORAL route every 4 - 6 hours as needed for pain - Active Vicodin 5 mg-500 mg Tab Take one to two tablets by mounth every four to six hours - Active Procedures Procedure Date No Charge Office Visit SPECIAL SUPPLIES PT Visit No Charge PT Visit No Charge PT Visit No Charge No Charge Office Visit PT Visit No Charge PT Visit No Charge No Charge Office Visit No Charge Office Visit No Charge Office Visit Advance Directives Directive Yes / No Effective Date File Name No Information Encounters Encounter Description Practice Location Reason(s) For Visit Diagnoses Date Provider Providers Copied on Encounter [facility], [address] [place] [address], [id number], [place] tel:[phone] [facility] No Information 0 Tio Jeff. [address] [place] [address], [id number], [place]. tel:[phone] [facility], [address] [place] [address], [id number], tel:[phone] [facility] No Information 9 Tio Jeff. [address] [place] [address], [id number], [place]. tel:[phone] Referring Provider: Self Referred, [address] [address], [place], [address]. tel:[phone] [facility], [address] [place] [address], [id number], [place] tel:[phone] [facility] No Information 9 Tio Jeff. [address] [place] [address], [id number], [place]. tel:[phone] Referring Provider: Tomer Hernandez, [address] [place] [address], [address]. tel:[phone] [facility], [address] [place] [address], [id number], [place] tel:[phone] [facility] No Information 9 Chang Mcpherson. [address] [place] [address], [id number], [place]. tel:[phone] Referring Provider: Tomer Hernandez, [address] [place] [address], [address]. tel:[phone] [facility], [address] [place] [address], [id number], [place] tel:[phone] [facility] No Information 9 Chang Mcpherson. [address] [place] [address], [id number], [place]. tel:[phone] Referring Provider: Tomer Hernandez, [address] [place] [address], [address]. tel:[phone] [facility], [address] [place] [address], [id number], [place] tel:[phone] [facility] No Information Sep-0 2-200 9 Otani Vida. [address] [place] [address], [id number], . tel:[phone] Referring Provider: Tomer Hernandez, [address] [place] [address], [id number]. tel:[phone] [facility], [address] [place] [address], [id number], tel:[phone] [facility] No Information Aug-3 0-200 9 Tio Jeff. [address] [place] [address], [id number], . tel:[phone] Referring Provider: Self Referred, [address] [address], [place], [address]. tel:[phone] [facility], [address] [place] [address], [id number], tel:[phone] [facility] No Information Aug-2 7-200 9 Otani Vida. [address] [place] [address], [id number], . tel:[phone] Referring Provider: Tomer Hernandez, [address] [place] [address], [id number]. tel:[phone] [facility], [address] [place] [address], [id number], tel:[phone] [facility] No Information 9-200 9 Otani Vida. [address] [place] [address], [id number], . tel:[phone] Referring Provider: Tomer Hernandez, [address] [place] [address], [address]. tel:[phone] [facility], [address] [place] [address], [id number], tel:[phone] [facility] No Information 7-200 9 Tio Jeff. [address] [place] [address], [id number], . tel:[phone] Referring Provider: Self Referred, [address] [address], [place], [address]. tel:[phone] [facility], [address] [place] [address], [id number], tel:[phone] [facility] No Information 0-200 9 Tio Jeff. [address] [place] [address], [id number], . tel:[phone] Referring Provider: Tomer Hernandez, [address] [place] [address], [id number]. tel:[phone] [facility], [address] [place] [address], [id number], tel:[phone] [facility] No Information 2200 9 Tio Jeff. [address] [place] [address], [id number], . tel:[phone] Referring Provider: Tomer Hernandez, [address] [place] [address], [id number]. tel:[phone] Family History Family Member Type Diagnosis Age At Onset No Information Payers Payer name Insurance type Covered democrat ID Authoriza tion(s) No Information Social History Type Description Quantity Date Captured Comments Sex Male Smoking Status No Information Chief Complaint And Reason For Visit No Information Reason For Referral Reason For Referral No Information History Of Present Illness Encounter Date Complaint History Of Prese nt Illness No Information Functional Status Date Functional Assessmen t No Information Instructions Date Instruction Additional Infor mation No Information Assessments Type Assessment Date No Information Patient Care Teams Name Effective Dates (start - stop) Status Members No Information
--- NOTE | ~2025-02-02 | XR_ITS ---
EXAMINATION: XR LUMBOSACRAL SPINE CLINICAL INFORMATION: intermittent sharp low back pain COMPARISON: None available. TECHNIQUE: AP and lateral views FINDINGS: Marginal osteophyte formation and endplate sclerosis from L2-3 to L4-5. Decreased intervertebral disc height at L4-5 and to a lesser extent L3-4 and L2-3 levels. Grade 1 retrolisthesis at L5-S1 on a degenerative basis. No lytic or blastic lesions. XR/XR lumbar spine 2-3V IMPRESSION: Multilevel spondylosis from L2-3 to L5-S1 pronounced at L4-5. Electronically signed by: Cesar Ndiaye MD 02/02/2025 12:14 PM EDT
--- OUTSIDE RECORDS SUMMARY | 2025-02-02 10:00 | XMS_ITS | Encounter Summary ---
Author Organization [employer] Address [address] [place] [address] 7[address] [place] [address] Care Team Providers Care Gum Scoring Machine Operator Name Role Phone Stephanie Aguilar DO Primary Care Provider [phone] Encounter Details Date Type Department Care Team (Late st Contact Info) Description 02/02/2025 10:00 AM EDT Office Visit [facility] [address] [place] [address] Stephanie Aguilar DO [address] [place] [address] Genital herpes simplex, unspecified site (Primary Dx); History of basal cell carcinoma; Chronic allergic rhinitis; Healthcare maintenance; Dietary counseling; Exercise counseling; Chronic bilateral low back pain without sciatica Social History Tobacco Use Types Packs/Day Years Used Date Smoking Tobacco: Former Cigarettes Comments:Pt's history states 1/2 ppd 2227-5742 Alcohol Use Standard Drinks/Week Comments Yes 2 (1 standard drink = 0.6 oz pur e alcohol) Depression Answer Date Recorded Patient Health Questionnaire-9 Score 0 02/02/2025 Patient Health Questionnaire-9 Score 0 02/02/2025 Last PHQ-9: Questionnaire Data Not on file 0 02/02/2025 Housing Stability Answer Date Recorded What is your housing situation today? I have leidy zazueta 02/02/[address] you li ve. Do you have problems with any of the following? None of the above 02/02/2025 Food Insecurity Answer Date Recorded Within the past 12 months, y ou worried that your food would run out before you got money to buy more: Never True 02/02/2025 Within the past 12 months,th e food you bought just didn't last and you didn't have enough money to get more: Never True Transportation Answer Date Recorded In the past 12 months, has l ack of transportation kept you from medical appts, meetings, work or from getting things needed for daily living? No 02/02/2025 Utilities Answer Date Recorded In the past 12 months, has t he [employer], gas, oil or water company threatened to shut off services in your home? No 02/02/2025 Depression Answer Date Recorded Patient Health Questionnaire-2 Score 0 02/02/2025 Internet Access Answer Date Recorded Internet Access Q1 Yes 02/02/2025 Internet Access Q2 Not on file 02/02/2025 Sex and Gender Information Value Date Recorded Sex Assigned at Male 04/30/2024 1:08 PM EST Legal Sex Male 1:07 PM EST Gender Identity Male 04/30/2024 1:08 PM EST Sexual Orientation Straight 04/30/2024 1: 08 PM EST documented as of this encounter Last Filed Vital Signs Vital Sign Reading Time Taken Comments Blood Pressure 124/80 02/02/2025 9:59 AM EDT Pulse 70 02/02/2025 9:59 AM EDT Temperature 37.2 C (98.9 F) 02/02/2025 9:59 AM EDT Respiratory Rate 19 02/02/2025 9:59 AM EDT Oxygen Saturation 97% 02/02/2025 9:59 AM EDT Inhaled Oxygen Concentration - - Weight 83.2 kg (183 lb 8 oz) 02/02/2025 9:59 AM EDT Height 177.8 cm (5' 10 ) 02/02/2025 9:59 AM EDT Body Mass Index 26.33 02/02/2025 9:59 AM EDT documented in this encounter Functional Status * Over the past 2 weeks, how often have you been bothered by any of the following problems? Question Answer Date of Assessment Author Patient Health Questionnaire -2 Score 0 02/02/2025 10:30 AM EDT Alfreda Sheehan MA * Little interest or pleasure in doing things Answer Date of Assessment Author Not at all 02/02/2025 10:30 AM Alfreda Murillo MA * Feeling down, depressed, or hopeless Answer Date of Assessment Author Not at all 02/02/2025 10:30 AM Alfreda Murillo MA * Trouble falling or staying asleep, or sleeping too much Answer Date of Assessment Author Not at all 02/02/2025 10:30 AM Alfreda Murillo MA * Feeling tired or having little energy Answer Date of Assessment Author Not at all 02/02/2025 10:30 AM EDT Alfreda Sheehan MA * Poor appetite or overeating Answer Date of Assessment Author Not at all 02/02/2025 10:30 AM Alfreda Murillo MA * Feeling bad about yourself - or that you are a failure or have let yourself or your family down Answer Date of Assessment Author Not at all 02/02/2025 10:30 AM Alfreda Murillo MA * Trouble concentrating on things, such as reading the newspaper or watching television Answer Date of Assessment Author Not at all 02/02/2025 10:30 AM Alfreda Murillo MA * Moving or speaking so slowly that other people could have noticed? Or the opposite - being so fidgety or restless that you have been moving around a lot more than usual. Answer Date of Assessment Author Not at all 02/02/2025 10:30 AM Alfreda Murillo MA * Thoughts that you would be better off or hurting yourself in some way Answer Date of Assessment Author Not at all 02/02/2025 10:30 AM Alfreda Murillo MA * Patient Health Questionnaire-9 Score Answer Date of Assessment Author 0 02/02/2025 10:30 AM Alfreda Murillo MA * Over the last 2 weeks, how often have you been bothered by any of the following problems? Question Answer Date of Assessment Author Feeling nervous, anxious, or on edge 1 02/02/2025 10:30 AM Alfreda Murillo MA Not being able to stop or co ntrol worrying 0 02/02/2025 10:30 AM Alfreda Murillo MA Worrying too much about diff erent things 1 02/02/2025 10:30 AM EDT Alfreda Sheehan MA Trouble relaxing 1 02/02/2025 10:30 AM EDT Alfreda Sheehan MA Being so restless that it is hard to sit still 0 02/02/2025 10:30 AM EDT Alfreda Sheehan MA Becoming easily annoyed or irritable 0 02/02/2025 10:30 AM EDT Alfreda Sheehan MA Feeling afraid as if somethi ng awful might happen 0 02/02/2025 10:30 AM EDT Alfreda Sheehan MA GUNNAR-7 Total Score 3 02/02/2025 10:30 AM EDT Alfreda Sheehan MA documented as of this encounter Plan of Treatment Scheduled Orders Name Type Priority Associated Diagnoses Orde r Schedule XR Lumbar Spine 2-3 Views Imaging Routine Chronic bilateral low back pain without sciatica Expected: 02/02/2025, Expires: 02/02/2026 documented as of this encounter Visit Diagnoses Diagnosis Genital herpes simplex, unspecified site- Primary History of basal cell carcinoma Personal history of other malignant neoplasm of skin Chronic allergic rhinitis Healthcare maintenance Dietary counseling Dietary surveillance and counseling Exercise counseling Chronic bilateral low back pain without sciatica documented in this encounter Additional Health Concerns Assessment Noted Time PHQ-9 Depression Total Score: 0 02/03/20 10:30 AM EDT documented as of this encounter Care Teams Gum Scoring Machine Operator Relationship Specialty Start Date End Date Stephanie Aguilar DO [address] [place] [address] PCP - General Family Medicine 08/26/24 documented as of this encounter
--- OUTSIDE RECORDS SUMMARY | 2025-02-02 11:55 | XMS_ITS | Clinical Summary ---
Author Organization [facility] Address [address] [address] Phone Care Team Providers Care Hospitality Team Member Name Role Phone Tulio Guillen MD Primary Care Provider Allergies No known active allergies Medications acyclovir (ZOVIRAX) 400 MG tablet 4 Active cyclobenzaprine (FLEXERIL) 10 MG tablet TAKE 1 TABLET(S) BY MOUTH TWICE A DAY NEEDED-MAY CAUSE DROWSINESS 4 Active Active Problems Problem Noted Date Diagnosed Date Basal cell carcinoma of skin of other parts of f brit 08/27/2023 Soft tissue mass 08/27/2023 Family History Medical History Relation Comments COPD Father Relation Status Comments Father Mother Alive Social History Tobacco Use Types Packs/Day Years Used Date Smoking Tobacco: Former Cigarettes - 2014 Smokeless Tobacco: Never Tobacco Cessation:Counseling Given: Not Answered Alcohol Use Standard Drinks/Week Comments Yes 0 [...] on file Sexual Orientation Not on file Last Filed Vital Signs Vital Sign Reading Time Taken Comments Blood Pressure 146/93 10/10/2023 8:57 AM EDT Pulse 63 10/10/2023 8:57 AM EDT Temperature - - Respiratory Rate 17 10/10/2023 8:00 AM EDT Oxygen Saturation 99% 10/10/2023 8:57 AM EDT Inhaled Oxygen Concentration - - Weight 85.1 kg (187 lb 9.6 oz) 08/27/2023 10:38 AM EDT Height 177.8 cm (5' 10 ) 08/27/2023 10:38 AM EDT Body Mass Index 26.92 08/27/2023 10:38 AM EDT Plan of Treatment Health Maintenance Due Date Last Done Comments Adult Td,Tdap Booster 1965 LIPID PANEL 1966 DEPRESSION SCREENING 1978 SMOKING Hx and SMOKELESS TOBACCO SCREENING 1979 HEPATITIS C SCREENING 1984 HIV ONE-TIME SCREENING (18-65 YEARS) 1984 SCREENING FOR DIABETES 2001 COLOGUARD 2011 COLONOSCOPY 2011 COLORECTAL CANCER SCREENING 2011 FIT TEST 2011 FOBT 2011 SIGMOIDOSCOPY 2011 VIRTUAL COLONOSCOPY 2011 PNEUMOCOCCAL VACCINES (50+ years) (1 of 1 - PCV) 2016 ZOSTER VACCINES (1 of 2) 2016 COVID-19 VACCINE ( season) 2024 03/01/2023, 06/11/2022, 09/21/2021, Additional history exists INFLUENZA VACCINE (#1) 2025 02/22/2023, 2021 HEPATITIS A VACCINES Aged Out No long er eligible based on patient's age to complete this topic HIB VACCINES Aged Out No longer eligi ble based on patient's age to complete this topic MENINGOCOCCAL VACCINES (ACWY) Aged Out No longer eligible based on patient's age to complete this topic MENINGOCOCCAL VACCINES (B) Aged Out N o longer eligible based on patient's age to complete this topic Medical Devices Not on file Insurance [employer] CONNECTORCARE DIRECT CONNECTORCARE DIRECT CONNECTORCARE DIRECT CONNECTORCARE DIRECT CONNECTORCARE DIRECT CONNECTORCARE DIRECT Care Teams Hospitality Team Member Relationship Specialty Start Date End Date Tulio Guillen MD [address] [place] [address] [place] [address] PCP - General Internal Medicine 08/20/23 Additional Source Comments The information contained in this document represents components of the legal health record. It is not the complete legal health record.[facility]
--- OUTSIDE RECORDS SUMMARY | 2025-02-02 11:55 | XMS_ITS | Encounter Summary ---
Author Organization [employer] Address [address] [place] [address] [address] [place] [address] Care Team Providers Care Aircraft Mechanic Structures Name Role Phone Stephanie Aguilar DO Primary Care Provider [phone] Reason for Visit * Reason Onset Date Comments Chart Prep 01/31/2025 Encounter Details Date Type Department Care Team (Late st Contact Info) Description 01/31/2025 Telephone [facility] [address] [place] [address] Stephanie Aguilar DO [address] [place] [address] Chart Prep Social History Tobacco Use Types Packs/Day Years Used Date Smoking Tobacco: Former Cigarettes Comments:Pt's history states 1/2 ppd 7796-9877 Alcohol Use Standard Drinks/Week Comments Yes 2 (1 standard drink = 0.6 oz pur e alcohol) Sex and Gender Information Value Date Recorded Sex Assigned at Male 04/30/2024 1:08 PM EST Legal Sex Male 1:07 PM EST Gender Identity Male 04/30/2024 1:08 PM EST Sexual Orientation Straight 04/30/2024 1: 08 PM EST documented as of this encounter Miscellaneous Notes * Telephone Encounter - Alfreda Sheehan MA - 01/31/2025 2:58 PM EDT Chart Prep Labs: done Images: not applicable Referrals: not applicable Vaccines due: PCV20, Tdap, Hep B, and Zoster Screenings: colonoscopy Overdue care gaps: SBIRT, SDOH, PHQ-9, GUNNAR-7, Oral health screening, and Disability screen documented in this encounter Plan of Treatment Not on file documented as of this encounter Visit Diagnoses Not on filedocumented in this encounter Care Teams Aircraft Mechanic Structures Relationship Specialty Start Date End Date Stephanie Aguilar DO [address] [place] [address] PCP - General Family Medicine 08/26/24 documented as of this encounter
--- OUTSIDE RECORDS SUMMARY | 2025-02-02 11:55 | XMS_ITS | Encounter Summary ---
Author Organization [employer] Address [address] [place] [address] [address] [place] [address] Care Team Providers Care Water Mechanic Name Role Phone Stephanie Aguilar DO Primary Care Provider Reason for Visit * Reason Onset Date Comments Med Refill 01/25/2025 Encounter Details Date Type Department Care Team (Late st Contact Info) Description 01/25/2025 Refill [facility] [address] [place] [address] Stephanie Aguilar DO [address] [place] [address] Social History Tobacco Use Types Packs/Day Years Used Date Smoking Tobacco: Former Cigarettes Comments:Pt's history states 1/2 ppd 4900-6226 Alcohol Use Standard Drinks/Week Comments Yes 2 [...] on filedocumented in this encounter Care Teams Water Mechanic Relationship Specialty Start Date End Date Stephanie Aguilar DO [address] [place] [address] PCP - General Family Medicine 08/26/24 documented as of this encounter
--- OUTSIDE RECORDS SUMMARY | 2025-02-02 11:56 | XMS_ITS | Patient Health Record ---
Author Organization [facility] Address [address] [place] [address] Care Team Providers Care Door And Arrival Attendant Name Role Phone Wilmer (RETIRED) Tulio CORREIA Primary Care Provide Dominick Mixon Jr Unavailable Allergies Allergen (clinical drug ingredient) Drug/Non Drug [...] Problem Status W/U Status Risk Notes Problem [id number] Colon cancer screening (Z12.11) Active confirmed Problem [id number] Encounter for other preprocedural examination (Z01.818) Active confirmed Plan Of Treatment Future Test Test Name Order Date COLONOSCOPY 10/03/2016 Insurance Providers Payer Name Payer Address Payer Phone Subscriber Number Group Number Insured Name Patient Relationship to Insured Coverage Start Date Coverage End Date [facility] [address] [place] [phone] [id number] YOLIE SANCHEZ Self - patient is the insured Medical (General) History Medical History History ICD Code Denies VA,DM,CVA,Lung disease,renal dise ase Surgical History Surgery Date(Month/Year) ankle surgery [id number] tonsillectomy
--- OUTSIDE RECORDS SUMMARY | 2025-02-02 11:56 | XMS_ITS | Clinical Summary ---
Author Organization [employer] Address [address] [place] [address] [address] [place] [address] Care Team Providers Care Pt Skilled Name Role Phone Stephanie Aguilar Primary Care Provider [phone] Allergies No known active allergies Medications acyclovir (Zovirax) 400 MG tablet Take 1 tablet (400 mg) by mouth 2 times daily. 60 tablet 11 5 Active fexofenadine (Tamie) 180 MG tablet Take 1 tablet (180 mg) by mouth Once per day. 30 tablet 11 5 08/27/19 26 Active cyclobenzaprin e (Flexeril) 10 MG tablet Take 10 mg by mouth. 4 Active sodium chloride (Morrow Nasal Balko) 0.65 % nasal spray Administer 1 spray into each nostril if needed for congestion. 30 mL 2 5 01/05/20 26 Active fluticasone (Flonase) 50 MCG/ACT nasal spray Administer 1-2 sprays into each nostril Once per day for 14 days. Shake gently. Before first use, prime pump. After use, clean tip and replace cap. As trial this is not chronic medication , is requested for 14 days only 16 g 5 Active meclizine (Antivert) 12.5 MG tablet Take 1 tablet (12.5 mg) by mouth if needed in the morning, at noon, and at bedtime for dizziness or nausea. 30 tablet 5 02/04/20 25 Active hydrOXYzine HCl (Atarax) 25 MG tablet Take 1 tablet by mouth every 6 (six) hours. 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 Normal finger to nose test, normal rapid alternating movements , Normal gait. [place] - Hallpike maneuver is negative Pt's symptoms partially seems related w vertigo Here Orthostatic VS are neg -given some sinus congestion reported that may exacerbate vertigo I am prescribing ocean nasal spray PRN use and flonase x 10-14 days use as trial -meclizine prn -advised pt to get labs done order by his PCP back in 08/2024 that includes TSH,T4, CBC,chem -f w PCP and return to [facility] if no better in next 10 to 14 days or earlier if worsening -alarm signs and symptoms discussed Sensorineural hearing loss (SNHL) of both ears 1 Benign paroxysmal vertigo, bilateral 04/01/2024 Resolved Problems Problem Noted Date Diagnosed Date Resolved Date H/O medial meniscus repair of left knee 08/26/2024 08/26/2024 Herpes 08/26/2024 08/26/2024 Dizziness and giddiness 04/01/2024 03/2 Basal cell carcinoma of skin of other parts of face 08/27/2023 08/26/2024 Soft tissue mass 08/27/2023 08/26/2024 Encounters Date Type Department Care Team Description 02/02/2025 10:00 AM EDT Office Visit [facility] [address] [place] [phone] Stephanie Aguilar DO Genital herpes simplex, unspecified site (Primary Dx); History of basal cell carcinoma; Chronic allergic rhinitis; Healthcare maintenance; Dietary counseling; Exercise counseling; Chronic bilateral low back pain without sciatica 02/02/2025 Travel 01/31/2025 Telephone [facility] [address] [place] [phone] Stephanie Aguilar DO Chart Prep 01/26/2025 Travel 01/25/2025 Refill [facility] [address] [place] [address] Stephanie Aguilar DO 01/14/2025 Telephone [facility] [address] [place] [phone] Stephanie Aguilar DO Call Back Request 01/05/2025 Orders Only [address] [phone] Stephanie Aguilar DO 01/04/2025 2:20 PM EDT Office Visit [facility] [address] [place] [phone] Rebekah Patterson MD Benign paroxysmal positional vertigo due to bilateral vestibular disorder (Primary Dx) 01/04/2025 Travel 11/23/2024 10:00 AM EDT Office Visit [facility] [address] [place] [phone] Sheila Jarquin MD Low back pain, unspecified back pain laterality, unspecified chronicity, unspecified whether sciatica present (Primary Dx) 11/23/2024 Travel 11/20/2024 Refill [facility] [address] [place] [phone] Stephanie Aguilar DO from Last 3 Months Immunizations Immunization Administration Dates Next Due Influenza Injectable Quadriv alant Preservative Free IIV4 MDCK 02/22/2023,03/22/2022 Influenza, seasonal, injectable, preservative fr ee 05/10/2024 Pfizer Covid-19 Vaccine 12+ 04/30/2024 Social History Tobacco Use Types Packs/Day Years Used Date Smoking Tobacco: Former Cigarettes Tobacco Cessation:Counseling Given: Not Answered Comments:Pt's history states 1/2 ppd [id number] Alcohol Use Standard Drinks/Week Comments Yes 2 [...] the past 12 months, has t he electric, gas, oil or water company threatened to [...] Mass Index 26.33 02/02/2025 9:59 AM EDT Plan of Treatment Health Maintenance Due Date Last Done Comments CT Colonography 1966 Colonoscopy 1966 Colorectal Cancer Screening 1966 FIT DNA/Cologuard 1966 FIT 1966 FOBT 1966 Sigmoidoscopy 1966 DTaP/Tdap/Td Vaccines (1 - Tdap) 1985 Hepatitis B Vaccines (1 of 3 - 19+ 3-dose series) 1985 Pneumococcal Vaccine: 50+ Years (1 of 1 - PCV) 2016 Zoster Vaccines (1 of 2) 2016 Influenza Vaccine (#1) 2025 , 02/22/2023, 03/22/2022 Alcohol/Substance Use Screening 02/02/2026 02/02/2025 Depression Screening 02/02/2026 02/02/2025, 02/03/20 Disability Screening 02/02/2026 02/02/2025 SDOH Screening 02/02/2026 02/02/2025 Tobacco Screening 02/02/2026 02/02/2025 Lipid Panel 01/05/2030 01/05/2025 RSV Patients and Patients Aged 60 years or older (1 - 1-dose 75+ series) 2041 COVID-19 Vaccine Completed 04/30/2024, , 06/11/2022, Additional history exists HIV Screening Completed 01/05/2025 Hepatitis C Screening Completed 01/05/2025 HIB Vaccines Aged Out No longer eligi [...] patient's age to complete this topic Meningococcal B Vaccine Aged Out No l onger eligible based on patient's age to complete [...] Procedure Name Priority Date/Time Associated Diagnosis Comments CHLAMYDIA/TRICHOMONAS /NEISSERIA GONORRHOEAE, PCR, URINE Routine 01/05/2025 8:55 AM EDT CBC WITH AUTO DIFFERENTIAL Routine 01/05/2025 8:55 AM EDT Genital herpes simplex, unspecified site History of basal cell carcinoma Chronic allergic rhinitis Healthcare maintenance HEPATITIS B CORE AB TOTAL Routine 01/05/2025 8:55 AM EDT Genital herpes simplex, unspecified site History of basal cell carcinoma Chronic allergic rhinitis Healthcare maintenance HEPATITIS A ANTIBODY, TOTAL Routine 01/05/2025 8:55 AM EDT Genital herpes simplex, unspecified site History of basal cell carcinoma Chronic allergic rhinitis Healthcare maintenance HEPATITIS B SURFACE ANTIBODY, QUALITATIVE Routine 01/05/2025 8:55 AM EDT Genital herpes simplex, unspecified site History of basal cell carcinoma Chronic allergic rhinitis Healthcare maintenance RPR (MONITOR) W/REFL TITER Routine 01/05/2025 8:55 AM EDT Genital herpes simplex, unspecified site History of basal cell carcinoma Chronic allergic rhinitis Healthcare maintenance HEPATITIS C AB W/REFL TO HCV RNA, QN, PCR Routine 01/05/2025 8:55 AM EDT Genital herpes simplex, unspecified site History of basal cell carcinoma Chronic allergic rhinitis Healthcare maintenance HIV 1/2 ANTIGEN/ANTIBODY, FOURTH GENERATION W/RFL Routine 01/05/2025 8:55 AM EDT Genital herpes simplex, unspecified site History of basal cell carcinoma Chronic allergic rhinitis Healthcare maintenance HEPATITIS B SURFACE ANTIGEN, EIA Routine 01/05/2025 8:55 AM EDT Genital herpes simplex, unspecified site History of basal cell carcinoma Chronic allergic rhinitis Healthcare maintenance BASIC METABOLIC PANEL Routine 01/05/2025 8:55 AM EDT Genital herpes simplex, unspecified site History of basal cell carcinoma Chronic allergic rhinitis Healthcare maintenance HEMOGLOBIN A1C Routine 01/05/2025 8:55 AM EDT Genital herpes simplex, unspecified site History of basal cell carcinoma Chronic allergic rhinitis Healthcare maintenance HEPATIC FUNCTION PANEL Routine 01/05/2025 8:55 AM EDT Genital herpes simplex, unspecified site History of basal cell carcinoma Chronic allergic rhinitis Healthcare maintenance VITAMIN D,25-OH,TOTAL,IA Routine 01/05/2025 8:55 AM EDT Genital herpes simplex, unspecified site History of basal cell carcinoma Chronic allergic rhinitis Healthcare maintenance TSH Routine 01/05/2025 8:55 AM EDT Genital herpes simplex, unspecified site History of basal cell carcinoma Chronic allergic rhinitis Healthcare maintenance LIPID PANEL, STANDARD Routine 01/05/2025 8:55 AM EDT Genital herpes simplex, unspecified site History of basal cell carcinoma Chronic allergic rhinitis Healthcare maintenance T4, FREE Routine 01/05/2025 8:55 AM EDT Genital herpes simplex, unspecified site History of basal cell carcinoma Chronic allergic rhinitis Healthcare maintenance from Last 3 Months Results * Chlamydia/Trichomonas/Neisseria gonorrhoeae, PCR, Urine (01/05/2025 8:55 AM EDT) CT PCR, Urine NOT DETECTED Not Detect. [facility] Comment:A not detected test result does not exclude the possibilityof infection because test results can be affected byimproper specimen collection, concurrent antibiotic therapy,or the number of organisms in the specimen which may bebelow the sensitivity of the test. As with many diagnostictests, results from the Xpert CT/NG assay should beinterpreted in conjunction with other laboratory andclinical data available to the clinician.The Xpert CT/NG assay should not be used for the evaluationof suspected sexual abuse or for other medico-legalindications. Additional testing is recommended in anycircumstance when false positive or false negative resultscould lead to adverse medical, social or psychologicalconsequences. NG PCR, Urine NOT DETECTED Not Detect. [facility] Comment:A not detected test result does not exclude the possibilityof infection because test results can be affected byimproper specimen collection, concurrent antibiotic therapy,or the number of organisms in the specimen which may bebelow the sensitivity of the test. As with many diagnostictests, results from the Xpert CT/NG assay should beinterpreted in conjunction with other laboratory andclinical data available to the clinician.The Xpert CT/NG assay should not be used for the evaluationof suspected sexual abuse or for other medico-legalindications. Additional testing is recommended in anycircumstance when false positive or false negative resultscould lead to adverse medical, social or psychologicalconsequences. 01/05/2025 8:55 AM EDT 01/05/2025 11:09 AM EDT us Stephanie Aguilar DO LAB URINE ORDERABLES Final R esult [facility] [address] [place] [phone] * Vitamin D, 25-Hydroxy, Total, Immunoassay (01/05/2025 8:55 AM EDT) Vitamin D 25-OH Total 39.6 >30 ng/mL [facility] Comment: Health Based Reference Values*< 20 ng/mL Girgxyfki23-55 ng/mL Insufficient> 30 ng/mL Sufficient*Dario MCMAHON. N Engl J Med. 2007;357:266-280There is no well-established upper level of normal vitamin Dlevels. Some laboratories use 50 ng/mL as an upper limit ofnormal. However, toxicity is patient-dependent and may occurat any level. Careful correlation with the patient'spresentation is necessary and, if there is concern forvitamin D toxicity, treatment should be consideredirrespective of the serum level.Care must be taken in interpreting Vitamin D results fromdifferent laboratories and methodologies. Published datademonstrated that results from patients undergoinghemodialysis may show a negative bias when tested withvarious automated 25-OH vitamin D assays when compared toLC-MS/MS.When testing samples from patients whose predominant form ofVitamin D is Vitamin D2, such as patients receiving VitaminD2 supplementation, results that are subtherapeutic shouldbe confirmed with another method such as LC-MS/MS. Blood Venous blood specimen / Unknown 01/05/2025 8:55 AM EDT 01/05/2025 11:23 AM EDT us Stephanie Aguilar DO LAB BLOOD ORDERABLES Final R esult [facility] [address] [place] [phone] * (ABNORMAL) CBC auto differential (01/05/2025 8:55 AM EDT) White Blood Count 5.6 4.8 - 10.8 X10*3/uL [facility] Red Blood Count 5.04 4.60 - 5.80 X10*6/uL [facility] Hemoglobin 15.9 14.0 - 18.0 g/dl [facility] Hematocrit 45.7 42.0 - 52.0 % [facility] Mean Corpuscular Volume 90.7 80.0 - 98.0 fL [facility] Mean Corpuscular Hemoglobin 31.5 27.0 - 33.0 pg [facility] Mean Corpuscular HGB Conc 34.8 31.0 - 36.0 g/dl [facility] Red Cell Distribution Width 12.2 11.0 - 16.0 % [facility] Platelet Count 242 160 - 400 X10*3/uL [facility] Mean Platelet Volume 10.2 9.4 - 12.4 fL [facility] Neutrophils Percent Auto 50.0 45 - 73 % [facility] Imm Gran Pct Auto 0.4 0.0 - 0.4 % [facility] Lymphocytes Percent Auto 32.7 20 - 40 % [facility] Monocytes Percent Auto 12.1(H) 2 - 11 % [facility] Eosinophils Percent Auto 3.4 0 - 4 % [facility] Basophils Percent Auto 1.4 0 - 2 % [facility] NRBC Pct Auto 0.0 0.0 - 0.2 /100WBC [facility] Neutrophils Absolute Auto 2.8 2.0 - 8.3 x10*3/uL [facility] Imm Gran Abs Auto 0.02 0.00 - 0.03 X10*3/uL [facility] Lymphocytes Absolute Auto 1.8 1.2 - 4.9 X10*3/uL [facility] Monocytes Absolute Auto 0.7 0.1 - 1.2 X10*3/uL [facility] Eosinophils Absolute Auto 0.2 0.0 - 0.4 X10*3/uL [facility] Basophils Absolute Auto 0.1 0.0 - 0.2 X10*3/uL [facility] NRBC Abs Auto 0.000 0.0 - 0.012 X10*3/uL [facility] Blood Venous blood specimen / Unknown 01/05/2025 8:55 AM EDT 01/05/2025 11:18 AM EDT Stephanie Aguilar Impulsonic LAB BLOOD ORDERABLES Final R esult Performing Organization Address [facility] Co de Phone Number [facility] [address] [place] [phone] * Hepatitis C Antibody with Reflex to HCV, RNA, Quantitative, Real-Time PCR (01/05/2025 8:55 AM EDT) Hepatitis C Antibody Nonreactive Nonreactive [facility] Comment:Antibodies to HCV no t detected; does not exclude early acuteHCV infection. Blood Venous blood specimen / Unknown 01/05/2025 8:55 AM EDT 01/05/2025 11:18 AM EDT Stephanie HughesVictoria Plumb LAB BLOOD ORDERABLES Final R esult Performing Organization Address [facility]/ZIP Co de Phone Number [facility] [address] [place] [phone] * Hepatitis A Antibody, Total (01/05/2025 8:55 AM EDT) Hepatitis A Antibody IgG REACTIVE Nonreactive [facility] Comment:The presence of IgG anti-HAV implies past HAV infection(recent or distant) or vaccination against HAV. Blood Venous blood specimen / Unknown 01/05/2025 8:55 AM EDT 01/05/2025 11:23 AM EDT Stephanie Aguilar DO LAB BLOOD ORDERABLES Final R esult Performing Organization Address [facility] Co de Phone Number [facility] [address] [place] [phone] * Hepatitis B surface antigen, EIA (01/05/2025 8:55 AM EDT) Pathologist [facility] Hepatitis B Surface Ag Negative Negative [facility] Blood Venous blood specimen / Unknown 01/05/2025 8:55 AM EDT 01/05/2025 11:18 AM EDT Stephanie Aguilar DO LAB BLOOD ORDERABLES Final R esult Performing Organization Address [facility] Co de Phone Number [facility] [address] [place] [phone] * Hepatitis B Core Antibody, Total (01/05/2025 8:55 AM EDT) Hepatitis B Core Antibody Nonreactive Nonreactive [facility] Blood Venous blood specimen / Unknown 01/05/2025 8:55 AM EDT 01/05/2025 11:18 AM EDT Stephanie Aguilar LAB BLOOD ORDERABLES Final R esult Performing Organization Address [facility] de Phone Number [facility] [address] [place] [phone] * RPR (Monitor) with Reflex to??Titer (01/05/2025 8:55 AM EDT) RPR (Monitor) w/Refl Titer NON-REACTI VE NON-REACT MARIFER [facility] Comment:THIS TEST WAS PERFOR MED AT:[facility] [place] [id number] RAM MD Rapid Plasma Reagin Ab Titer TNP [facility] Blood Venous blood specimen / Unknown 01/05/2025 8:55 AM EDT 01/05/2025 11:18 AM EDT us Stephanie Aguilar Impulsonic LAB BLOOD ORDERABLES Final R esult Performing Organization Address [facility]/ZIP Co de Phone Number [facility] [address] [place] [phone] * HIV-1/2 Antigen and Antibodies, Fourth Generation, with Reflexes (01/05/2025 8:55 AM EDT) Pathologist [facility] HIV AB/AG Nonreactive Nonreactive [facility] Comment:HIV-1 p24 Ag and/or HIV-1/HIV-2 Ab not detected.A test result that is nonreactive does not exclude thepossibility of exposure to or infection with HIV-1 and/orHIV-2. Nonreactive results in this assay for individualswith prior exposure to HIV-1 and/or HIV-2 may be due toantigen and antibody levels that are below the limit ofdetection of this assay.The [employer] HIV Ag/Ab Combo assay result andsupplemental assay results should be interpreted inconjunction with the patient's clinical presentation,history and other laboratory results. If the results areinconsistent with clinical evidence, additional testing issuggested to confirm the result. Blood Venous blood specimen / Unknown 01/05/2025 8:55 AM EDT 01/05/2025 11:18 AM EDT us Stephanie Jurmil DO LAB BLOOD ORDERABLES Final R esult Performing Organization Address [facility]/ZIP Co de Phone Number [facility] [address] [place] [phone] * Hepatitis B Surface Antibody, Qualitative (01/05/2025 8:55 AM EDT) ~Hepatitis B Surface Antibody NONREACTIVE Nonreactive [facility] Comment:Nonreactive: < 8.00 mIU/mL Blood Venous blood specimen / Unknown 01/05/2025 8:55 AM EDT 01/05/2025 11:18 AM EDT Stephanie Aguilar DO LAB BLOOD ORDERABLES Final R esult Performing Organization Address [facility]/ZIP Co de Phone Number [facility] [address] [place] [phone] * TSH (01/05/2025 8:55 AM EDT) Pathologist [facility] Thyroid Stimulating Hormone 1.47 0.32 - 4.0 uIU/mL [facility] Comment:TSH 3rd Generation ( [facility]) Blood Venous blood specimen / Unknown 01/05/2025 8:55 AM EDT 01/05/2025 11:23 AM EDT Stephanie Aguilar DO LAB BLOOD ORDERABLES Final R esult Performing Organization Address [facility] Co de Phone Number [facility] [address] [place] [phone] * T4, Free (01/05/2025 8:55 AM EDT) Pathologist [facility] Free T4 (Free Thyroxine) 1.01 0.71 - 1.85 ng/dL [facility] Blood Venous blood specimen / Unknown 01/05/2025 8:55 AM EDT 01/05/2025 11:23 AM EDT Stephanie Aguilar DO LAB BLOOD ORDERABLES Final R esult Performing Organization Address [facility]/ZIP Co de Phone Number [facility] [address] [place] [phone] * Hemoglobin A1c (01/05/2025 8:55 AM EDT) Hemoglobin A1c 4.9 <6.0 % [facility] Comment:Hemoglobin A1C Refer ence Range Adults: 4.8 - 6.0 % Non diabetic: < 6.0 % Goal: < 7.0 %Additional Action Suggested: > 8.0 %Note: Hemoglobin A1c results are invalid for patients with abnormal amounts of HbF. Blood transfusions may impact the HbA1c concentration in the patient sample. Estimated Average Glucose 94 mg/dL [facility] Comment:eAG = Estimated ave rage glucose which is %A1C expressed asaverage glucose, using the formula of the [id number]-[id number] Glucose study (ADAG), Diabetes Care, Vol.31,#8,Jan. 2007 Blood Venous blood specimen / Unknown 01/05/2025 8:55 AM EDT 01/05/2025 11:18 AM EDT Stephanie Aguilar DO LAB BLOOD ORDERABLES Final R esult [facility] [address] [place] [phone] * Hepatic Function Panel (01/05/2025 8:55 AM EDT) Bilirubin, Total 0.7 0.0 - 1.0 mg/dL [facility] Bilirubin, Direct 0.2 0.0 - 0.5 mg/dL [facility] Aspartate Amino Transferase 27 5 - 37 U/L [facility] Alanine Aminotransferase 35 0 - 40 U/L [facility] Total Protein 7.0 6.5 - 8.0 g/dL [facility] Albumin Level 4.0 3.5 - 5.0 g/dL [facility] Alkaline Phosphatase 66 39 - 117 U/L [facility] Blood Venous blood specimen / Unknown 01/05/2025 8:55 AM EDT 01/05/2025 11:23 AM EDT Stephanie Lauren DO LAB BLOOD ORDERABLES Final R esult [facility] [address] [place] [phone] * (ABNORMAL) Lipid Panel, Standard (01/05/2025 8:55 AM EDT) Triglycerides 87 <150 mg/dL [facility] Comment:Desirable Triglyceri de: less than 150 mg/dLBorderline High Triglyceride 150-199 mg/dLHigh Triglyceride: 200-499 mg/dLVery High Triglyceride: greater than or equal to 5OO mg/dL Cholesterol 231(H) <200 mg/dL [facility] Comment:Desirable Cholestero l: less than 200 mg/dLBorderline High Cholesterol: 200-239 mg/dLHigh Cholesterol: greater than 239 mg/dL LDL Cholesterol Calculated 158(H) <100 mg/dL [facility] Comment:Desirable LDL: less than 100 mg/dLNear Optimal/Above Optimal LDL: 110- 129 mg/dLBorderline High LDL: 130-159 mg/dLHigh LDL: 160-189 mg/dLVery High LDL: greater than or equal to 190 mg/dL HDL Cholesterol 56 >40 mg/dL [facility] Comment:Desirable HDL: great er than 40 mg/dL Note: This HDL assay may give artificially low results in patients with liver disease. Blood Venous blood specimen / Unknown 01/05/2025 8:55 AM EDT 01/05/2025 11:23 AM EDT us Stephanie Lauren DO LAB BLOOD ORDERABLES Final R esult [facility] [address] [place] [phone] * (ABNORMAL) Basic Metabolic Panel (01/05/2025 8:55 AM EDT) Sodium 139 135 - 145 mmol/L [facility] Potassium 3.7 3.3 - 5.1 mmol/L [facility] Chloride 109(H) 96 - 108 mmol/L [facility] Carbon Dioxide 24 22 - 29 mmol/L [facility] Anion Gap 10(L) 12 - 20 [facility] Urea Nitrogen (BUN) 13 9 - 16 mg/dL [facility] Creatinine, Serum 0.85 0.5 - 1.4 mg/dL [facility] Estimated Glomerular Filt Rate >60 [facility] Comment:Chronic Kidney Disea se: Estimated GFR < 60 mL/min/1.36g5Nmrapf Kidney Disease: Estimated GFR < 15 mL/min/1.73m2 Glucose 93 60 - 115 mg/dL [facility] Calcium 8.6 8.4 - 10.2 mg/dL [facility] Blood Venous blood specimen / Unknown 01/05/2025 8:55 AM EDT 01/05/2025 11:23 AM EDT Stephanie Aguilar DO LAB BLOOD ORDERABLES Final R esult [facility] [address] [place] [phone] from Last 3 Months Insurance [facility] Care Teams Pt Skilled Relationship Specialty Start Date End Date Stephanie Aguilar DO [address] [place] [phone] PCP - General Family Medicine 08/26/24
--- OUTSIDE RECORDS SUMMARY | 2025-02-02 11:56 | XMS_ITS | Encounter Summary ---
Author Organization [employer] Address [address] [place] [address] [address] [place] [address] Care Team Providers Care Psychologist Clinical Name Role Phone Stephanie Aguilar DO Primary Care Provider [phone] Reason for Visit * Reason Onset Date Comments Med Refill 11/20/2024 Encounter Details Date Type Department Care Team (Late st Contact Info) Description 11/20/2024 Refill [facility] [address] [place] [address] Stephanie Aguilar DO [address] [place] [address] Social History Tobacco Use Types Packs/Day Years Used Date Smoking Tobacco: Former Cigarettes Comments:Pt's history states 1/2 ppd [id number] Alcohol Use Standard Drinks/Week Comments Yes 2 [...] on filedocumented in this encounter Care Teams Psychologist Clinical Relationship Specialty Start Date End Date Stephanie Aguilar DO [address] [place] [address] PCP - General Family Medicine 08/26/24 documented as of this encounter
--- OUTSIDE RECORDS SUMMARY | 2025-02-02 11:56 | XMS_ITS | Encounter Summary ---
Author Organization [facility] Address [address] [facility] [address] [place] [phone] Phone Care Team Providers Care Trim And Burr Operator Name Role Phone Tulio Guillen MD Primary Care Provider Encounter Details Date Type Department Care Team (Late st Contact Info) Description 10/10/2023 Procedure Pass OR Admitting Dept - Virtual Department [address] [place] [id number] Social History Tobacco Use Types Packs/Day Years [...] on filedocumented in this encounter Care Teams Trim And Burr Operator Relationship Specialty Start Date End Date Tulio Guillen MD [address] [place] [address] [place] [address] PCP - General Internal Medicine 08/20/23 documented as of this encounter Additional Source Comments The information contained in this document represents components of the legal health record. It is not the complete legal health record.[facility]
--- OUTSIDE RECORDS SUMMARY | 2025-02-02 11:56 | XMS_ITS | Encounter Summary ---
Author Organization [employer] Address [address] [facility] [address] [place] [address] Care Team Providers Care Courseware Developer Name Role Phone Stephanie Aguilar DO Primary Care Provider [phone] Encounter Details Date Type Department Care Team (Latest Contact Info) Description 02/02/2025 Travel Social History Tobacco Use Types Packs/Day Years Used Date Smoking Tobacco: Former Cigarettes Comments:Pt's history states 1/2 ppd [id number] Alcohol Use Standard Drinks/Week Comments Yes 2 [...] PM EST documented as of this encounter Functional Status * Over the past 2 weeks, how often have you been bothered by any of the following problems? Question Answer Date of Assessment Author Patient Health Questionnaire -2 Score 0 02/02/2025 10:30 AM Aflreda Murillo MA * Little interest or pleasure in [...] 02/02/2025 10:30 AM Alfreda Murillo MA * Poor appetite or overeating Answer [...] 10:30 AM EDT Alfreda Sheehan MA * Thoughts that you would be better off or hurting yourself in some way Answer Date of Assessment Author Not at all 02/02/2025 10:30 AM EDT Alfreda Sheehan MA * Patient Health Questionnaire-9 Score Answer Date of Assessment Author 0 02/02/2025 10:30 AM EDT Alfreda Sheehan MA * Over the last 2 weeks, how often have you been bothered by any of the following problems? Question Answer Date of Assessment Author Feeling nervous, anxious, or on edge 1 02/02/2025 10:30 AM EDT Alfreda Sheehan MA Not being able to stop or co ntrol worrying 0 02/02/2025 10:30 AM EDT Alfreda Sheehan MA Worrying too much about diff erent [...] Diagnoses Not on filedocumented in this encounter Additional Health Concerns Assessment Noted Time PHQ-9 Depression Total Score: 0 02/03/20 10:30 AM EDT documented as of this encounter Care Teams Courseware Developer Relationship Specialty Start Date End Date Stephanie Aguilar DO [address] [place] [address], [place] [address] PCP - General Family Medicine 08/26/24 documented as of this encounter
== END 2025-02-02 11:01 | disposition home or self-care (01) ==
LOC: HO.HHCL 11:00
PROVIDERS: PCP Family Medicine; Visit Provider Family Medicine
DX: M54.50 Low back pain, unspecified (principal); G89.29 Other chronic pain
CPT/HCPCS: 72100

== ENCOUNTER → 2025-02-02 11:38 | Outpatient (BNV) | payer OTHER, SELFPAY | PROVIDERS: PCP Family Medicine; Visit Provider Radiology Diagnostic Radiology | DX: M47.896 Other spondylosis, lumbar region (principal) | CPT/HCPCS: 72100 ==